=== PATIENT | male | born 1990 | race Caucasian/White ===

== ENCOUNTER 2017-03-19 22:04 | Emergency (ER) | payer OTHER ==
[~2017-03-19] VITALS: Ht 170.2 cm; Wt 65.8 kg
--- NOTE | ~2017-03-19 | CR117 ---
[facility]. [facility] A Service of [facility] & [facility] RADIOLOGY TEXT RESULTS PATIENT: RAPHAEL LOERA LOCATION: SED : 88 UNIT #: [id number] AGE: [address]: Lokesh Auguste MD SEX: M ORDER DR: [id number] [place] [id number] E MR#: [id number] Acc #: [id number] NAME: RAPHAEL LOERA : 1990 SEX: M STUDY DATE/TIME: 03/19/2017 23:38 UNIT: SED ROOM: STUDY DESCRIPTION: CR Finger 2 View Thumb Rt Attending Physician: Lokesh Auguste M.D. Ordering Physician: Lokesh Auguste M.D. Primary Care Physician: Primary Care Physician No MEDICAL IMAGING REPORT This report is preliminary unless electronic signature is present. EXAM Right thumb 3 views HISTORY Thumb pain after crush injury today. FINDINGS Three views of the right thumb demonstrate no acute finding. No fracture, joint space narrowing or dislocation. Minimal degenerative changes in the IP joint. IMPRESSION No acute findings. Dictated by... Elvin Wayne M.D. THIS IS AN ELECTRONICALLY VERIFIED REPORT Elvin Wayne M.D. at 03/20/2017 6:14 AM TERESA/elvira TD: 03/20/2017 06:03 JOB #: [id number] MEDICAL IMAGING REPORT Page 1 of 1
[~2017-03-19 22:04] MED LIST: BACTRIM DS TABL1 TA1; CIPRO PO; IBUPROFEN PO; KEFLEX500 MG; LORTAB 5/500 TA1 TA1 PO; LORTAB 7.51 TAB 7.5/ PO; NAPROSYN500 MG PO; NO MEDICATIONS; PERCOCET 10/3251 TAB; VIBRAMYCIN100 M1 PO; VOLTAREN50 MG PO; VOLTAREN75 MG PO
== END 2017-03-20 00:55 | disposition home or self-care (01) ==
LOC: SED 22:04
DX: S60.011A Contusion of right thumb without damage to nail, initial encounter (principal); Z87.891 Personal history of nicotine dependence; W23.0XXA Caught, crushed, jammed, or pinched between moving objects, initial encounter
CPT/HCPCS: 73140; 99283